=== PATIENT | female | born 1970 | race Caucasian/White ===

== ENCOUNTER 2017-10-02 14:58 | Emergency (ER) | payer SELFPAY ==
[2017-10-02 15:53] LABS: Bilirubin Negative (Negative); Blood, Urine Trace (Negative); Clarity CLEAR (Clear); Glucose, Urine (Dipstick) >=1000 mg/dL (Negative); Leukocyte Negative (Negative); Nitrite Negative (Negative); Protein, Urine (Dipstick) 30 mg/dL (Neg-Trace); Specific Gravity, Urine 1.044 (1.002-1.036); Urobilinogen 0.2 mg/dL (0.2-1.0); pH, Urine 5.5 (5.0-9.0)
[2017-10-02 15:55] LABS: Bacteria/HPF None Seen HPF (None Seen); Hyaline Casts/LPF 0-3 HYALINE CAST LPF (0-3 Hyaline); Pathc Cast-AUWi Flag 0.43 (0-2.49); Pregnancy Test - Urine (BHCG) Negative (Negative); Pregu Control Background? CLEAR/WHITE (CLR/WHITE); Pregu Control Bar Appear? YES (CONTROL BAR); RBC/HPF 0-3 HPF (0-3); Specific Gravity 1.044 (1.002-1.036); WBC/HPF 0-3 HPF (0-3)
[2017-10-02 16:21] LABS: Crystals/HPF None Seen HPF (Negative); Oval Fat Bodies/HPF None Seen HPF (None Seen); Renal Epithelial None Seen HPF (0-3); Transitional Epithelial NONE SEEN HPF (0-3); Trichomonas/HPF None Seen HPF (None Seen)
[2017-10-05 00:56] LABS: Chlamydia by PCR Not Detected (NotDetected); GC by PCR Not Detected (NotDetected)
== END 2017-10-02 15:58 | disposition home or self-care (01) ==
LOC: ERS 14:58
DX: B37.3 Candidiasis of vulva and vagina (principal)
CPT/HCPCS: 81003; 81015; 81025; 87480; 87491; 87510; 87591; 87660; 99283

== ENCOUNTER 2017-11-02 17:50 | Emergency (ER) | payer SELFPAY ==
[2017-11-02 18:45] LABS: Bilirubin Negative (Negative); Blood, Urine Trace (Negative); Clarity CLEAR (Clear); Glucose, Urine (Dipstick) >=1000 mg/dL (Negative); Leukocyte Negative (Negative); Nitrite Negative (Negative); Protein, Urine (Dipstick) Negative (Neg-Trace); Specific Gravity, Urine 1.042 (1.002-1.036); pH, Urine 5.5 (5.0-9.0)
[2017-11-02 18:49] LABS: Bacteria/HPF None Seen HPF (None Seen); Hyaline Casts/LPF 0-3 HYALINE CAST LPF (0-3 Hyaline); Pathc Cast-AUWi Flag 0.29 (0-2.49); Squamous Epithelial 0-3 HPF (0-3)
[2017-11-02 20:30] LABS: Pregnancy Test - Urine (BHCG) Negative (Negative); Pregu Control Background? CLEAR/WHITE (CLR/WHITE); Pregu Control Bar Appear? YES (CONTROL BAR); Specific Gravity 1.042 (1.002-1.036)
[2017-11-03 23:07] LABS: Chlamydia by PCR Not Detected (NotDetected); GC by PCR Not Detected (NotDetected)
== END 2017-11-02 21:15 | disposition home or self-care (01) ==
LOC: ERS 17:50
DX: B37.3 Candidiasis of vulva and vagina (principal)
CPT/HCPCS: 36416; 81003; 81015; 81025; 87086; 87480; 87491; 87510; 87591; 87660; 99283

== ENCOUNTER 2017-11-04 18:20 | Emergency (ER) | payer SELFPAY ==
[2017-11-04 19:22] LABS: #Eosinphils 0.2 thou/uL (0.0-0.7); #Lymphocytes 2.8 thou/uL (1.20-3.40); #Monocytes 0.6 thou/uL (0.11-0.59); #Neutrophils 5.1 thou/uL (1.40-6.50); %Basophils 0.4 % (0.0-1.0); %Lymphocytes 32.2 % (21.0-51.0); %Monocytes 6.8 % (0.0-10.0); %Neutrophils 58.7 % (42.0-75.0); Hemoglobin 16.7 g/dL (12.0-16.0); Mean Corpuscular Volume 88.6 fl (81.0-99.0); Mean Platelet Volume 8.7 fL (7.4-10.4); Platelet Count 238 thou/uL (130-400); RBC Distribution Width 12.8 % (11.5-14.5); Red Blood Cell (RBC) Count 5.37 mill/uL (4.20-5.40); White Blood Cell (WBC) Count 8.6 thou/uL (4.8-10.8)
[2017-11-04 19:46] LABS: ALT (SGPT) 25 U/L (8-55); AST (SGOT) 22 U/L (5-34); Albumin 4.1 g/dL (3.5-5.0); Alkaline Phosphatase 100 U/L (40-150); Anion Gap 12 mmol/L (10-20); BUN (Urea Nitrogen) 9 mg/dL (7.0-18.7); Bilirubin, Total 1.2 mg/dL (0.2-1.2); Calc. Creatinine Clearance 0 mL/min (70-130); Calcium 9.6 mg/dL (7.8-10.44); Carbon Dioxide 23 mmol/L (22-29); Chloride 98 mmol/L (98-107); Estimated GFR-MDRD 74; Globulin 3.7 g/dL (2.4-3.5); Glucose 350 mg/dL (70-105); Potassium 3.8 mmol/L (3.5-5.1); Protein, Total 7.8 g/dL (6.0-8.3); Sodium 129 mmol/L (136-145)
[2017-11-04 21:09] LABS: Bilirubin Negative (Negative); Blood, Urine Negative (Negative); Clarity CLEAR (Clear); Glucose, Urine (Dipstick) >=1000 mg/dL (Negative); Leukocyte Negative (Negative); Nitrite Negative (Negative); Protein, Urine (Dipstick) Trace mg/dL (Neg-Trace); Specific Gravity, Urine 1.036 (1.002-1.036); pH, Urine 5.5 (5.0-9.0)
[2017-11-04] MEDS ORDERED: Acetaminophen 500 MG TAB ONE (22:07)
[2017-11-04] MEDS ORDERED: Insulin Regular 300 UNITS/3 ML VIAL ONE (22:12)
[2017-11-04] MEDS ORDERED: metFORMIN 500 MG TAB PO SCH (22:30)
== END 2017-11-04 23:39 | disposition home or self-care (01) ==
LOC: ERS 18:20
DX: E11.9 Type 2 diabetes mellitus without complications (principal); I10 Essential (primary) hypertension
CPT/HCPCS: 36415; 36416; 80053; 81003; 85025; 96361; 96374; 96376; J1815

== ENCOUNTER 2018-09-16 19:10 | Observation (INO) | payer SELFPAY ==
[2018-09-16 19:42] LABS: #Eosinphils 0.1 thou/uL (0.0-0.7); #Lymphocytes 0.9 thou/uL (1.20-3.40); #Monocytes 1.2 thou/uL (0.11-0.59); #Neutrophils 7.4 thou/uL (1.40-6.50); %Eosinophils 0.8 % (0.0-10.0); %Lymphocytes 9.3 % (21.0-51.0); %Monocytes 12.2 % (0.0-10.0); %Neutrophils 77.8 % (42.0-75.0); Mean Corpuscular HGB CONC 34.5 g/dL (32.0-36.0); Mean Corpuscular Hemoglobin 30.7 pg (27.0-31.0); Mean Corpuscular Volume 89.2 fL (78.0-98.0); Mean Platelet Volume 9.3 fL (7.4-10.4); Platelet Count 198 thou/uL (130-400); White Blood Cell (WBC) Count 9.6 thou/uL (4.8-10.8)
[2018-09-16 19:42] LABS: Bilirubin Moderate (Negative); Blood, Urine Moderate (Negative); Clarity CLOUDY (Clear); Glucose, Urine (Dipstick) 250 mg/dL (Negative); Leukocyte Negative (Negative); Nitrite Negative (Negative); Protein, Urine (Dipstick) 100 mg/dL (Neg-Trace); Specific Gravity, Urine 1.028 (1.002-1.036); pH, Urine 5.5 (5.0-9.0)
[2018-09-16 19:46] LABS: Bacteria/HPF None Seen HPF (None Seen)
[2018-09-16 19:49] LABS: Pathc Cast-AUWi Flag 4.89 (0-2.49)
[2018-09-16 20:01] LABS: Hyaline Casts/LPF 4-6 HYALINE CAST LPF (0-3 Hyaline); RBC/HPF 0-3 HPF (0-3)
[2018-09-16 20:02] LABS: Renal Epithelial None Seen HPF (0-3); Transitional Epithelial NONE SEEN HPF (0-3)
[2018-09-16 20:04] LABS: ALT (SGPT) 56 U/L (8-55); AST (SGOT) 69 U/L (5-34); Albumin 4.4 g/dL (3.5-5.0); Alkaline Phosphatase 102 U/L (40-150); Anion Gap 16 mmol/L (10-20); BUN (Urea Nitrogen) 10 mg/dL (7.0-18.7); Bilirubin, Total 1.4 mg/dL (0.2-1.2); Calc. Creatinine Clearance 0 mL/min (70-130); Calcium 9.6 mg/dL (7.8-10.44); Carbon Dioxide 23 mmol/L (22-29); Chloride 91 mmol/L (98-107); Estimated GFR-MDRD 54; Globulin 3.9 g/dL (2.4-3.5); Glucose 242 mg/dL (70-105); Potassium 3.8 mmol/L (3.5-5.1); Protein, Total 8.3 g/dL (6.0-8.3); Sodium 126 mmol/L (136-145)
--- NOTE | 2018-09-16 20:16 | RAD ---
TWO VIEW CHEST: 09/16/18 COMPARISON: 07/12/15 INDICATIONS: Cough. Slight chest deformity involving the right first and second ribs appear stable. The lungs show no rafal dence of infiltrate or effusion. Heart size is upper normal. Vasculature is mildly prominent. Degener ative spine changes. IMPRESSION: No acute process identified. POS: [facility]
[2018-09-16] MEDS ORDERED: Ketorolac Tromethamine 30 MG/ML VIAL ONE (20:33)
[2018-09-16] MEDS ORDERED: Acetaminophen 500 MG TAB ONE (20:33)
[2018-09-16] MEDS ORDERED: Oseltamivir 75 MG CAP PO SCH (20:45)
[2018-09-16] MEDS ORDERED: Ondansetron PF 4 MG/2 ML Vial ONE (21:16)
[2018-09-16] MEDS ORDERED: Morphine 2 MG/ML SYRINGE ONE (22:41)
[2018-09-17] MEDS ORDERED: Ondansetron ODT 4 MG TAB PO PRN (00:15)
[2018-09-17] MEDS ORDERED: Ondansetron PF 4 MG/2 ML Vial IVP PRN (00:15)
[2018-09-17 00:24] VITALS: BMI 47.3
[2018-09-17] MEDS ORDERED: Oseltamivir 75 MG CAP PO SCH ×2 (00:30→08:00)
[2018-09-17] MEDS ORDERED: Dextrose 5 %-0.45 % NaCl 1,000 ML IV SCH (00:30)
[2018-09-17] MEDS ORDERED: Dextrose 5% in Water 1,000 ML IV PRN (05:28)
[2018-09-17] MEDS ORDERED: Dextrose 50% Abboject 50 ML SYRINGE IVP PRN (05:28)
[2018-09-17 05:33] LABS: #Eosinphils 0.1 thou/uL (0.0-0.7); #Lymphocytes 1.2 thou/uL (1.20-3.40); #Monocytes 0.9 thou/uL (0.11-0.59); #Neutrophils 4.5 thou/uL (1.40-6.50); %Basophils 0.2 % (0.0-1.0); %Eosinophils 0.8 % (0.0-10.0); %Lymphocytes 17.5 % (21.0-51.0); %Monocytes 13.6 % (0.0-10.0); %Neutrophils 67.8 % (42.0-75.0); Hemoglobin 15.1 g/dL (12.0-16.0); Mean Corpuscular HGB CONC 34.7 g/dL (32.0-36.0); Mean Corpuscular Hemoglobin 31.2 pg (27.0-31.0); Mean Corpuscular Volume 89.9 fL (78.0-98.0); Mean Platelet Volume 9.1 fL (7.4-10.4); Platelet Count 146 thou/uL (130-400); RBC Distribution Width 12.1 % (11.5-14.5); Red Blood Cell (RBC) Count 4.84 mill/uL (4.20-5.40); White Blood Cell (WBC) Count 6.6 thou/uL (4.8-10.8)
[2018-09-17] MEDS: HumaLOG 300 UNITS/3 ML VIAL SC PRN ×4 (05:38→20:14)
[2018-09-17 05:54] LABS: Anion Gap 16 mmol/L (10-20); BUN (Urea Nitrogen) 10 mg/dL (7.0-18.7); Calc. Creatinine Clearance 156 mL/min (70-130); Calcium 8.5 mg/dL (7.8-10.44); Carbon Dioxide 21 mmol/L (22-29); Chloride 100 mmol/L (98-107); Estimated GFR-MDRD 71; Glucose 242 mg/dL (70-105); Potassium 3.7 mmol/L (3.5-5.1); Sodium 133 mmol/L (136-145)
[2018-09-17] MEDS: Acetaminophen 325 MG TAB PO PRN ×2 (08:48→13:28)
[2018-09-17] MEDS: Oseltamivir 75 MG CAP PO SCH ×2 (08:48→20:09)
[2018-09-17] MEDS: Insulin Glargine 35 UNITS in Pre-Filled Syringe 1 EACH SC SCH (08:48)
[2018-09-17] MEDS: Enoxaparin Sodium 40 MG/0.4 ML SYRINGE SC SCH (08:49)
[2018-09-17] MEDS: Fluconazole 100 MG TAB PO SCH (08:49)
--- NOTE | 2018-09-17 09:27 | HP ---
PRIMARY CARE DOCTOR: Vikram Wolf MD CODE STATUS: Full code. TIME OF EVALUATION: 10:40 p.m. CHIEF COMPLAINT: Nausea, vomiting, cough, and chest pain. HISTORY OF PRESENT ILLNESS: This is a 48-year-old female patient with past medical history of diabetes type 2, came to the hospital after having nausea, vomiting, chest pain, and shortness of breath. The patient has had the symptoms for the past few days. It is reported that there is a grand-kid with flu at home. The patient tested positive for influenza, symptoms were severe, no clear triggers for the flu. No alleviating factors associated with anorexia. REVIEW OF SYSTEMS: CONSTITUTIONAL: The patient had fever, chills, generalized weakness. RESPIRATORY: Cough, scant yellowish sputum production, shortness of breath. CARDIOVASCULAR: palpitation. GASTROINTESTINAL: The patient had nausea and vomiting. No diarrhea or abdominal pain. UPPER LINING CEMENTER: No dizziness, headache, or feeling lightheaded. GENITOURINARY: No burning on urination. EXTREMITIES: No leg swelling. All other systems were reviewed and negative except for the findings mentioned above. PAST MEDICAL HISTORY: As mentioned in the HPI. PAST SURGICAL HISTORY: x2, appendectomy, and cholecystectomy. PSYCH HISTORY: No previous psych history. SOCIAL HISTORY: No drugs. No smoking history. KNOWN ALLERGIES: No known drug allergies. REPORTED MEDICATIONS: 1. Levemir. 2. Prednisone. 3. Cephalexin. 4. Fluconazole. PHYSICAL EXAMINATION: VITAL SIGNS: On presentation, blood pressure 127/87, heart rate 126, respiratory rate was 20, temperature 101.1, pain was 8, and oxygen saturation was 94 on room air. GENERAL APPEARANCE: The patient is alert, oriented, in no acute distress. HEENT: Eyes, normal conjunctivae. Moist oral mucosa. Anicteric. No JVD. RESPIRATORY: Bilateral air entry. No rales. No wheezing. Symmetric expansion. CARDIOVASCULAR: The patient is tachycardic. Regular rhythm. No murmurs. No gallop. No edema. ABDOMEN: Soft. Normal bowel sounds. MUSCULOSKELETAL: Baseline range of motion and strength. No tenderness. SKIN: Warm and intact. No pallor. No rash. No redness. Peripheral pulses are present. Capillary refill seems to intact. NEUROLOGIC: No evidence of any new focal weakness. Baseline speech. Cranial nerves seems to be intact. PSYCH: The patient is in good mood. No anxiety. Optimal judgment. The patient has ill appearance. LABORATORY DATA: EKG was reviewed. The patient has sinus tachycardia at the rate of 116, SD 130, QRS 82, QT corrected 419 Labs were reviewed. The patient has white count 9.6, hemoglobin 16, MCV 89.2, platelet count 198. Sodium 126, repeat one of 133, potassium 3.8, chloride 91, carbon dioxide 23, anion gap 16, BUN 10, creatinine 1.0, GFR 54, glucose 242. Serum osmolality 278, lactic acid 1.6, calcium 9.6, total bilirubin 1.4, AST 69, ALT 56, alkaline phosphatase 102, serum total protein 9.3, albumin 4.4, globulin 3.9, albumin to globulin ratio is 1.1. Urine was done. The patient has some proteinuria with glucosuria, ketones 80, white count 4 to 6. Beta hydroxybutyrate 1.91. ASSESSMENT AND PLAN: The patient will be placed in the hospital with the following medical problems: 1. Influenza infection, the patient will be started on Tamiflu. We will treat symptomatically. The patient presented with fever, nausea, and vomiting. 2. Dehydration due to nausea and vomiting. We will hydrate. 3. Hyponatremia due to poor oral intake and nausea and vomiting, sodium has corrected already after initial treatment. 4. Uncontrolled diabetes with blood sugar 242, reconcile home medications, we will put the patient on sliding scale for optimal control. 5. Systemic inflammatory response syndrome, likely secondary to viral infection. The patient had fever and tachycardia, we will do procalcitonin to rule out any over imposed bacterial infection. 6. Deep venous thrombosis prophylaxis. Job ID: [id number]
[2018-09-17] MEDS ORDERED: cefTRIAXone\\ROCEPHIN 1 GM in Sodium Chloride 0.9% 100 ML IVPB SCH (13:00)
[2018-09-17] MEDS: PHENYLEPHRINE HCL 10 MG PO PRN (13:31)
[2018-09-17] MEDS: Sodium Chloride 0.9% 1,000 ML IV SCH ×2 (14:19→23:13)
--- NOTE | 2018-09-17 18:40 | PRG ---
DATE OF SERVICE: 09/17/2018 SUBJECTIVE: Ms. Toya Grossman is a 48-year-old female with past medical history significant for type 2 diabetes mellitus, who presented to the hospital with a 3-day history of nausea, vomiting, and cough. The patient has been admitted with influenza A, hyponatremia, and volume depletion. The patient continues to complain of body aches, fever, chills, cough, and wheezing. Her nausea has been controlled with antiemetics. She tells me that she has had some dysuria recently in the form of burning and frequency. She is tolerating some solid food at this point without further episodes of vomiting. OBJECTIVE: VITAL SIGNS: Blood pressure 113/62, temp 99.8, T-max 102.7, pulse 97, respirations 16, O2 saturation is 94% on 2 L nasal cannula. GENERAL: The patient is an obese female, resting comfortably in bed, appears ill. HEENT: Head is atraumatic and normocephalic. Mucous membranes are moist. NECK: No lymphadenopathy. No JVD. Trachea is midline. CV: S1 and S2. Regular rate and rhythm. No appreciable murmurs, rubs, or gallops. LUNGS: Regular respiratory rate and pattern. Diffuse expiratory wheezes noted throughout lung vazquez, occasional rhonchi. ABDOMEN: Positive bowel sounds. Soft, nontender, obese. EXTREMITIES: +2 DP pulses bilaterally. Extremities are warm and well perfused. No edema. NEUROLOGIC: Cranial nerves 2 through 12 intact. The patient is nonfocal. LABORATORY DATA: White blood cell count 6.6, hemoglobin 15.1, hematocrit 43.5, platelet 146. Sodium 133, this is improved from 126 on admission; potassium 3.7 ; chloride 100; anion gap 16; BUN 10; creatinine 0.85; GFR 71; glucose is 197. Urine culture positive for gram-negative rods, however, less than 10,000 CFUs. Urinalysis was negative for bacteria. ASSESSMENT: 1. Influenza A with continued hypoxemia. 2. Nausea and vomiting with resulting volume depletion and hyponatremia, improving. 3. Type 2 diabetes mellitus. PLAN: At this time, we will continue IV fluid resuscitation and Tamiflu. Continue sliding scale insulin. Continue breathing treatments as the patient has significant wheezing at this time. Supportive care with antipyretics and antiemetics. The patient is improving, expect discharge soon. Care discussed with Dr. Mcmanus, who agrees with the above. Job ID: [id number] [facility]
[2018-09-17] MEDS: Ibuprofen 600 MG TAB PO PRN (23:12)
[2018-09-18 05:28] LABS: Anion Gap 12 mmol/L (10-20); BUN (Urea Nitrogen) 6 mg/dL (7.0-18.7); Calc. Creatinine Clearance 186 mL/min (70-130); Calcium 8.5 mg/dL (7.8-10.44); Carbon Dioxide 24 mmol/L (22-29); Chloride 104 mmol/L (98-107); Estimated GFR-MDRD 89; Glucose 191 mg/dL (70-105); Potassium 3.4 mmol/L (3.5-5.1); Sodium 137 mmol/L (136-145)
[2018-09-18 05:45] LABS: Band 9 % (5-11); Hemoglobin 13.7 g/dL (12.0-16.0); Lymphocytes 29 % (21-51); MDiff Complete? YES; Mean Corpuscular Hemoglobin 30.8 pg (27.0-31.0); Mean Corpuscular Volume 90.8 fL (78.0-98.0); Mean Platelet Volume 9.1 fL (7.4-10.4); Metamyelocyte 1 % (0-0); Monocytes 16 % (0-10); Myelocyte 1 % (0-0); Neutrophil 40 % (42-75); Platelet Count 146 thou/uL (130-400); RBC Distribution Width 12.1 % (11.5-14.5); Reactive Lymphocytes 4 % (0-10); Red Blood Cell (RBC) Count 4.46 mill/uL (4.20-5.40); White Blood Cell (WBC) Count 5.3 thou/uL (4.8-10.8)
[2018-09-18] MEDS ORDERED: Potassium Chloride 20 MEQ TAB PO SCH (08:15)
[2018-09-18] MEDS: Insulin Glargine 35 UNITS in Pre-Filled Syringe 1 EACH SC SCH (08:26)
[2018-09-18] MEDS: Fluconazole 100 MG TAB PO SCH (08:26)
[2018-09-18] MEDS: Enoxaparin Sodium 40 MG/0.4 ML SYRINGE SC SCH (08:26)
[2018-09-18] MEDS: Oseltamivir 75 MG CAP PO SCH (08:26)
[2018-09-18] MEDS: Sodium Chloride 0.9% 1,000 ML IV SCH (08:26)
[2018-09-18] MEDS: PHENYLEPHRINE HCL 10 MG PO PRN (08:27)
[2018-09-18] MEDS: Ibuprofen 600 MG TAB PO PRN (08:55)
[2018-09-18] MEDS ORDERED: guaiFENesin/DM ER PO SCH (09:00)
[2018-09-18 12:04] VITALS: BP 118/63; TEMP 99.4
== END 2018-09-18 13:11 | disposition home or self-care (01) ==
LOC: ERS 19:10 → 2SW 22:50
PROVIDERS: ADMIT Internal Medicine; ATTEND Internal Medicine
DX: J09.X2 Influenza due to identified novel influenza A virus with other respiratory manifestations (principal); E11.65 Type 2 diabetes mellitus with hyperglycemia; E87.1 Hypo-osmolality and hyponatremia; E86.0 Dehydration; Z90.49 Acquired absence of other specified parts of digestive tract; Z79.4 Long term (current) use of insulin; Z79.2 Long term (current) use of antibiotics; Z79.52 Long term (current) use of systemic steroids; Z79.899 Other long term (current) drug therapy; Z98.890 Other specified postprocedural states
CPT/HCPCS: 36415; 36416; 71046; 80048; 80053; 81003; 81015; 82010; 83605; 83930; 85025; 87040; 87086; 87804; 90471; 90686; 93005; 94640; 96361; 96372; 96374; 96375; 99292; G0008; G0378; J0696; J1650; J1825; J1885; J2270; J2405; J7050; J7620

== ENCOUNTER 2018-10-05 12:58 | Outpatient (CLI) | payer OTHER | END 2018-10-05 12:59 | disposition home or self-care (01) | LOC: DTY/OP 12:58 | PROVIDERS: ATTEND Family Medicine | DX: E11.9 Type 2 diabetes mellitus without complications (principal) | CPT/HCPCS: 97802 ==